=== PATIENT | male | born 1955 | race Caucasian/White ===

== ENCOUNTER → 2021-02-20 | Day surgery (SDC) | payer OTHER, BC ==
[2021-02-15 16:19] VITALS: BMI 26.8
[~2021-02-20] MED LIST: MAGNESIUM OXIDE 400 MG TABLET (FP) PO ONE; POTASSIUM CHLORIDE TABS 20 MEQ TABLET.ER (FP) PO ONE
[2021-02-20 10:28] VITALS: TEMP 98.2
[2021-02-20 11:45] LABS: CALCIUM 9.3 mg/dL (8.5-10.1)
[2021-02-20 11:46] LABS: BLOOD UREA NITROGEN 18.5 mg/dL (7-18); MAGNESIUM 1.7 mg/dL (1.8-2.4)
[2021-02-20 11:49] LABS: CREATININE 1.1 mg/dL (0.55-1.3)
[2021-02-20 12:39] VITALS: BP 132/89; PULSE 89
== END | disposition home or self-care (01) ==
LOC: JASU-ENDO 04:39
PROVIDERS: ATTEND Internal Medicine Gastroenterology
PROC: 0DJD8ZZ Inspection of Lower Intestinal Tract, Via Natural or Artificial Opening Endoscopic (ICD-10-PCS; principal; 2021-02-20 09:45)
DX: Z12.11 Encounter for screening for malignant neoplasm of colon (principal); K57.30 Diverticulosis of large intestine without perforation or abscess without bleeding; K64.8 Other hemorrhoids; N40.0 Benign prostatic hyperplasia without lower urinary tract symptoms; I10 Essential (primary) hypertension
CPT/HCPCS: 36415; 80048; 83735